=== PATIENT | female | born 1945 ===

== ENCOUNTER 2017-09-18 10:01 | Outpatient (CLI) | payer MEDICARE, BC ==
--- NOTE | 2017-09-18 14:39 | Diagnostic Imaging Report ---
Indication: Dysphagia Technique: Patient ingested effervescent granules, oral thick and thin liquid barium, upright and supine, and rapid sequence spot images and overhead images were obtained Comparison: none Findings: There is mild esophageal dysmotility, with some distal tertiary contractions. No anatomic obstruction. No evidence of stricture, filling defect, or ulceration. On the prone images, there is a small sliding-type hiatal hernia, which is not evident on the upright images. No gastroesophageal reflux is evident under fluoroscopy Impression: Mild esophageal dysmotility, probably age-related No evidence of anatomic obstruction Small hiatal hernia
== END 2017-09-18 12:01 | disposition home or self-care (01) ==
LOC: RAD 10:01
DX: R13.10 Dysphagia, unspecified (principal); K44.9 Diaphragmatic hernia without obstruction or gangrene
CPT/HCPCS: 74220